=== PATIENT | female | born 1985 | race Caucasian/White ===

== ENCOUNTER 2021-01-27 09:58 | Emergency (ER) | payer MEDICAID, MEDICARE, OTHER ==
[~2021-01-27] VITALS: Ht 182.9 cm; Wt 95.3 kg
--- NOTE | 2021-01-27 10:03 | NUR ---
Patient brought in by RA [id number] for "behaviors", no behaviors noted at this time
[2021-01-27] MEDS ORDERED: DEPAKOTE (10:11)
[2021-01-27] MEDS ORDERED: KLONOPIN (10:11)
[2021-01-27] MEDS ORDERED: LATUDA (10:11)
--- NOTE | 2021-01-27 10:11 | NUR ---
Complaints of right knee pain, X-ray at bedside at this time
[2021-01-27] MEDS ORDERED: HYDROCODONE/APAP 10-325 MG TABLET ONE (10:14)
[2021-01-27] MEDS ORDERED: HYDROCODONE/APAP 10-325 MG TABLET PO ONE (10:15)
[2021-01-27] MEDS ORDERED: TAPE100T2 PO (10:39)
--- NOTE | 2021-01-27 12:00 | NUR ---
Patientnoted resting in bed, no signs of acute distress noted at this time
--- NOTE | 2021-01-27 14:09 | NUR ---
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
[2021-01-27] MEDS ORDERED: IBUPROFEN 600 MG TABLET PO ONE (14:15)
[2021-01-27] MEDS ORDERED: IBUPROFEN 600 MG TABLET ONE (14:23)
--- NOTE | 2021-01-27 15:02 | NUR ---
Nesha (caregiver) picked up patient at this time, Patient discharged to home in stable condition. Written and verbal after care instructions given. Able to ambulate, no signs of acute distress. Patient verbalizes understanding of instructions. Stressed follow up or return to ER for worsening s/s.
[2021-01-27 15:08] VITALS: BP 137/76
== END 2021-01-27 15:10 | disposition home or self-care (01) ==
LOC: ER 09:58
DX: M25.561 Pain in right knee (principal); G89.29 Other chronic pain; M17.11 Unilateral primary osteoarthritis, right knee; F20.9 Schizophrenia, unspecified; Z79.899 Other long term (current) drug therapy
CPT/HCPCS: A4663